=== PATIENT | male | born 1990 | race Caucasian/White ===

== ENCOUNTER 2016-12-12 22:27 | Emergency (ER) | payer OTHER | END 2016-12-12 23:47 | disposition home or self-care (01) | LOC: D.ER 22:27 | DX: I88.9 Nonspecific lymphadenitis, unspecified (principal); F17.200 Nicotine dependence, unspecified, uncomplicated ==

== ENCOUNTER 2016-12-15 14:24 | Emergency (ER) | payer OTHER ==
[2016-12-15 15:55] LABS: BASOPHILS 0.4 % (0-2); EOSINOPHILS 3.4 % (0-7); HEMATOCRIT 45.9 % (42.0-54.0); HEMOGLOBIN 16.2 g/dL (13.5-17.5); IMMATURE GRANULOCYTES 0.2 % (0-5); LYMPHOCYTES 40.5 % (15-50); MCH 32.9 pg (26.0-34.0); MCHC 35.3 g/dL (31.0-37.0); MCV 93.1 fL (80.0-100.0); MEAN PLATELET VOLUME 9.2 fL (7.4-10.4); MONOCYTES 5.5 % (2-11); PLATELET COUNT 172 10x3/uL (130-400); RBC 4.93 10x6/uL (4.20-6.10); RDW 13.4 % (11.5-14.5); WBC 5.6 10x3/uL (4.8-10.8)
== END 2016-12-15 17:24 | disposition home or self-care (01) ==
LOC: D.ER 14:24
PROVIDERS: Nurse Practitioner Acute Care
DX: L03.012 Cellulitis of left finger (principal); F17.200 Nicotine dependence, unspecified, uncomplicated